=== PATIENT | male | born 1945 | race Caucasian/White ===

== ENCOUNTER → 2018-07-15 | Outpatient (CLI) | payer MEDICARE ==
--- NOTE | 2018-07-15 13:44 | RADIOLOGY IMAGING REPORT ---
FACILITY: [facility] PATIENT NAME: Americo Dos Santos : 1945 MR: [id number] V: [id number] EXAM DATE: ORDERING PHYSICIAN: JOHN HYMAN TECHNOLOGIST: Location: [facility] Patient: Americo Dos Santos : 1945 Visit/Account:[id number] Date of Sevice: 07/15/2018 Exam type: VENOUS DOPP LOW LEFT EXTREMITY History: Fell 8 days ago, bruised from thigh to ankle of left lower extremity Comparison: None. Findings: The left lower extremity veins were imaged including the left common femoral vein, greater saphenous vein, popliteal vein, posterior tibial vein, peroneal vein revealing no evidence of intraluminal thro mbi. The veins were compressible and demonstrated augmentation. IMPRESSION: 1. No sonographic evidence DVT involving the left lower extremity veins Results were called to JOHN HYMAN at 07/15/2018 1:39 PM. Report Dictated By: Lizzette Grant MD at 07/15/2018 1:37 PM Report E-Signed By: Lizzette Grant MD at 07/15/2018 1:40 PM WSN:[email or web address]
== END ==
LOC: US 12:35
PROVIDERS: ATTEND Physician Assistant
DX: M79.605 Pain in left leg (principal); R60.9 Edema, unspecified